=== PATIENT | male | born 1945 | race Caucasian/White ===

== ENCOUNTER → 2016-06-10 | Outpatient (CLI) | payer BC ==
[~2016-06-10] MED LIST: CRAN1TAB PO; CRS/10 PO; FLAXOIL2 PO; GLUCTAB7 PO; MAGN250T22 PO; MECL1TAB42 PO; MULT-506 PO; OMEG10007 PO; OXYC-57 PO; ROSU10TA35; SIMV10TA2 PO; TAMS0.4C38 PO
== END | disposition home or self-care (01) ==
LOC: C.LABSPEC 17:00
PROVIDERS: ATTEND Urology
DX: N20.0 Calculus of kidney (principal)

== ENCOUNTER → 2016-06-10 | Outpatient (CLI) | payer BC ==
--- NOTE | 2016-06-10 14:42 | DIAGNOSTIC IMAGING REPORT ---
KUB CLINICAL HISTORY: N20.0 [id number] COMPARISON STUDY: 04/22/2016 FINDINGS: There are right lower pole renal calculi measuring 14.511 mm respectively. There is a 7 mm mid pole left renal calculus. Pelvic basin calcifications are felt to reflect phleboliths and arterial calcifications.. There is no pathologic bowel dilatation. IMPRESSION: Bilateral nephrolithiasis. Electronically signed by: Rusty Mcdonald M.D. 06/10/2016 2:40 PM
== END | disposition home or self-care (01) ==
LOC: C.RAD 14:00
PROVIDERS: ATTEND Urology
DX: N20.0 Calculus of kidney (principal)

== ENCOUNTER → 2016-06-26 | Day surgery (SDC) | payer BC ==
[2016-06-19 10:19] VITALS: Ht 176.5 cm; Wt 77.3 kg
--- NOTE | 2016-06-25 15:17 | DIAGNOSTIC IMAGING REPORT ---
KUB CLINICAL HISTORY: Nephrolithiasis. FINDINGS: 2 AP abdominal radiograph are compared to study dated 06/10/2016 and correlated with abdominal CT dated 01/15/2016. There is a nonobstructed abdominal bowel gas pattern. There are several nonobstructing left renal calculi. The largest measures up to 7 mm. There are 2 large calculi or clusters of calculi in the right kidney. These measure up to 1.2 cm and 1.5 cm, and are overall similar to the 06/10/2016 examination. No ureteral calculus is seen. Numerous pelvic phleboliths are similar to previous. The skeletal structures appear osteopenic. There is mild lumbosacral spondylosis. IMPRESSION: Bilateral nephrolithiasis, similar in appearance to the 06/10/2016 examination. Electronically signed by: Ceferino Allen M.D. 06/25/2016 3:15 PM Dictated Date/Time: 06/25/2016 3:12 PM
[~2016-06-26] VITALS: Ht 176.5 cm; Wt 77.3 kg
[~2016-06-26] MED LIST changes: +ATROPINE SULFATE 0.1 MG/ML 5ML SYR IV PRN; +CIPROFLOXACIN / D5W 400 MG IV SCH; +CLINDAMYCIN 600 MG/54 ML D5W IV SCH; +DEXAMETHASONE SOD INJ 4 MG/ML VIAL ONE; +EpHEDrine SULFATE INJ 50 MG/ML AMP IV PRN; +FENTANYL CITRATE INJ 50 MCG/1 ML 2 ML VIAL IV PRN; +FENTANYL CITRATE INJ 50 MCG/1 ML 2 ML VIAL ONE; +LACTATED RINGER'S 1000ML 1,000 ML IV SCH; +LIDOCAINE HCL 2% 2 ML VIAL (20MG/ML) ONE; +MIDAZOLAM HCL 1 MG/ML 2ML VIAL ONE; +ONDANSETRON INJ 2 MG/ML 2 ML VIAL IV PRN; +ONDANSETRON INJ 2 MG/ML 2 ML VIAL ONE; +OXYCODONE/ACETAMINOPHEN 5-325 TAB PO PRN; +PROPOFOL IV EMULSION 10 MG/ML 20 ML VIAL IV ONE; +ROSU10TA24; -ROSU10TA35; -SIMV10TA2 PO
--- NOTE | 2016-06-26 08:32 | History & Physical Bridge Note ---
H&P Re-Evaluation Bridge Note: I have examined the patient, reviewed the History & Physical and in the interval since the performance of the History & Physical I have noted the following changes of clinical significance: No changes noted
--- NOTE | 2016-06-26 09:26 | [facility] Post Operative Brief Note ---
Immediate Operative Summary Operative Date Jun 26, 2016. Pre-Operative Diagnosis Left Kidney Stone Post-Operative Diagnosis Same Procedure(s) Performed Left Extracorporeal Shock Wave Lithotripsy Surgeon Dr Hameed Hand Tier Surgeon(s) None Estimated Blood Loss 0ml Findings left stones Specimens None
--- NOTE | 2016-06-26 09:31 | Discharge Instructions-SurgCtr ---
Discharge Instructions Visit Reason for Visit: Stones;Nephrolithiasis N20.0 Discharge Discharge Diagnosis / Problem: stone Discharge Goals Goal(s): Therapeutic intervention Activity Recommendations Activity Limitations: resume your previous activity (take it easy today) Anesthesia . Post Anesthesia Instructions: If you have had General Anesthesia or IV Sedation: * Do not drive today. * Resume driving when surgeon permits. * Do not make important decisions or sign legal documents today. * Call surgeon for: 1. Temperature elevations greater than 101 degrees F. 2. Uncontrollable pain. 3. Excessive bleeding. 4. Persistent nausea and vomiting. 5. Medication intolerance (nausea, vomiting or rash). * For nausea and vomiting use only clear liquids such as: tea, soda, bouillon until nausea subsides, then gradually increase diet as tolerated. * If you have any concerns or questions, call your surgeon's office. If physician is unavailable and it is an emergency, call 911 or go to the nearest emergency room. . Instructions / Follow-Up Instructions / Follow-Up MEDICATIONS: Resume previous medications unless instructed otherwise by your surgeon. Resume pre-ESWL medication except for aspirin, coumadin or other blood thinners. __ Toradol 10 mg every 6 hours for initial pain. __ Lortab 5 mg 1-2 every 4 hours for pain. _x_ Percocet 5 mg 1-2 every 4 hours for pain. __ Macrodantin 50 mg x 3 a day. __ Flomax 1 tab daily one half (1/2) hour after supper. SPECIAL CARE INSTRUCTIONS: 1. Get KUB (x-ray) _x_ day before or day of office visit and bring x-ray to office __ get x-ray 2 days before and tell office you are getting x-rays when you call for the appointment. 2. Strain ALL urine. 3. Please call if you have a fever, chills, severe pain, or constant dribbling of urine. 4. Office phone number . FOLLOW UP VISIT: Please call the office to schedule a follow-up appointment at . Diet Recommendations Home Diet: resume previous diet Procedures Procedures Performed: Left Extracorporeal Shock Wave Lithotripsy Pending Studies Studies pending at discharge: no Medical Emergencies . Who to Call and When: Medical Emergencies: If at any time you feel your situation is an emergency, please call 911 immediately. . Non-Emergent Contact Non-Emergency issues call your: Urologist . . "Provider Documentation" section prepared by Fabrice Stark. [facility] Monitoring Program Search Results: patient reviewed within database
--- NOTE | 2016-06-26 10:20 | Anesthesia Progress Nt - [facility] ---
Anesthesia Post Op Note Date & Time Jun 26, 2016 at 10:14 Vital Signs Pain Intensity: 0 Vital Signs Past 12 Hours Date Time Temp Pulse Resp B/P Pulse Ox O2 Delivery O2 Flow Rate FiO2 06/26/16 10:06 76 13 95 06/26/16 10:06 74 13 06/26/16 10:03 115/68 06/26/16 10:01 71 12 06/26/16 10:01 70 12 96 06/26/16 09:58 106/70 06/26/16 09:56 75 27 06/26/16 09:56 77 27 96 06/26/16 09:53 99/58 06/26/16 09:51 73 15 97 06/26/16 09:51 72 15 06/26/16 09:48 106/72 06/26/16 09:46 64 6 97 06/26/16 09:46 62 6 06/26/16 09:43 112/71 06/26/16 09:41 61 27 06/26/16 09:41 61 27 109/66 97 06/26/16 09:40 36.5 61 106/61 97 Room Air 06/26/16 07:48 36.5 85 18 128/81 95 Room Air Notes Mental Status: alert / awake / arousable, participated in evaluation Pt Amnestic to Procedure: Yes Nausea / Vomiting: adequately controlled Pain: adequately controlled Airway Patency, RR, SpO2: stable & adequate BP & HR: stable & adequate Hydration State: stable & adequate Anesthetic Complications: no major complications apparent
[2016-06-26 10:24] VITALS: TEMP 36.6
[2016-06-26 10:46] VITALS: BP 128/77; O2SAT 97
--- NOTE | 2016-06-30 13:35 | OPERATIVE REPORT ---
DATE OF OPERATION: 06/26/2016 PREOPERATIVE DIAGNOSIS: Left renal calculus. POSTOPERATIVE DIAGNOSIS: Same. PROCEDURE: Extracorporeal shockwave lithotripsy. FINDINGS: KUB showed stone left kidney. SURGEON: Dr. Stark. ANESTHESIA: General. DRAINS: None. COMPLICATIONS: None. SPECIMENS: None. INDICATIONS: The patient is a 71-year-old white male with a left renal stone being brought in for ESWL. DETAILS OF PROCEDURE: The patient was brought to the litho suite. He was correctly identified and the stone was visualized on his most recent x-rays. After the correct time out was performed the patient was positioned over the therapy head. An adequate level of anesthesia was administered. The extracorporeal shockwave lithotripsy treatment was then commenced. Please see the [place] Kidney Stone Management sheet for complete treatment summary. After completion of the procedure the patient was taken to the recovery room in stable condition. I attest to the content of the Intraoperative Record and any orders documented therein. Any exceptio ns are noted below.
== END | disposition home or self-care (01) ==
LOC: X.SURG 07:34
PROVIDERS: ATTEND Urology
DX: N20.0 Calculus of kidney (principal); N40.0 Benign prostatic hyperplasia without lower urinary tract symptoms; R31.0 Gross hematuria; R97.20 Elevated prostate specific antigen [PSA]; Z90.89 Acquired absence of other organs; Z83.3 Family history of diabetes mellitus

== ENCOUNTER → 2016-07-06 | Outpatient (CLI) | payer BC ==
[~2016-07-06] MED LIST changes: -ATROPINE SULFATE 0.1 MG/ML 5ML SYR IV PRN; -CIPROFLOXACIN / D5W 400 MG IV SCH; -CLINDAMYCIN 600 MG/54 ML D5W IV SCH; -DEXAMETHASONE SOD INJ 4 MG/ML VIAL ONE; -EpHEDrine SULFATE INJ 50 MG/ML AMP IV PRN; -FENTANYL CITRATE INJ 50 MCG/1 ML 2 ML VIAL IV PRN; -FENTANYL CITRATE INJ 50 MCG/1 ML 2 ML VIAL ONE; -LACTATED RINGER'S 1000ML 1,000 ML IV SCH; -LIDOCAINE HCL 2% 2 ML VIAL (20MG/ML) ONE; -MIDAZOLAM HCL 1 MG/ML 2ML VIAL ONE; -ONDANSETRON INJ 2 MG/ML 2 ML VIAL IV PRN; -ONDANSETRON INJ 2 MG/ML 2 ML VIAL ONE; -OXYCODONE/ACETAMINOPHEN 5-325 TAB PO PRN; -PROPOFOL IV EMULSION 10 MG/ML 20 ML VIAL IV ONE
--- NOTE | 2016-07-06 15:28 | DIAGNOSTIC IMAGING REPORT ---
KUB CLINICAL HISTORY: Nephrolithiasis. FINDINGS: 2 AP abdominal radiograph are compared to study dated 06/25/2016 and correlated with abdominal CT dated 01/15/2016. There is a nonobstructed abdominal bowel gas pattern. There are several nonobstructing left renal calculi. The largest stone in on the left previously measured 7 mm is no longer identified. Several stone fragments are now seen at this site. Additional tiny nonobstructing left calculi are unchanged. There is unchanged appearance of the 2 large right renal calculi as compared to 06/25/2016. These measure up to 1.2 cm and 1.5 cm. No ureteral calculus is seen. Numerous pelvic phleboliths are similar to previous. The skeletal structures appear osteopenic. There is mild lumbosacral spondylosis. IMPRESSION: 1. The largest nonobstructing left renal calculus is seen on 06/25/2016 has been fragmented as above. 2. Large right renal calculi are unchanged in appearance. Electronically signed by: Ceferino Allen M.D. 07/06/2016 3:27 PM Dictated Date/Time: 07/06/2016 3:24 PM
== END | disposition home or self-care (01) ==
LOC: C.RAD 14:52
PROVIDERS: ATTEND Urology
DX: N20.0 Calculus of kidney (principal)

== ENCOUNTER → 2016-07-24 | Day surgery (SDC) | payer BC ==
[2016-07-16 12:10] VITALS: Ht 176.5 cm; Wt 77.3 kg
--- NOTE | 2016-07-23 14:11 | DIAGNOSTIC IMAGING REPORT ---
KUB HISTORY: N20.0 Calculus of kidney BE DONE EITHER THE NIGHT BEFORE OR MO COMPARISON: KUB 07/06/2016. FINDINGS: The bowel gas pattern is unremarkable. There are no dilated loops of small bowel to suggest an obstruction. Bilateral nephrolithiasis is not significant changed. There are 2 adjacent irregular stones within the right kidney with the largest measuring 14 mm. These remain unchanged. Punctate left renal calculi are again noted including the fragmented stone within the interpolar region of the left kidney.. No ureteral calculi. Calcifications in the deep pelvis likely represent phleboliths. No pneumoperitoneum or pneumatosis. IMPRESSION: Stable bilateral nephrolithiasis. Electronically signed by: Blaine Daily M.D. 07/23/2016 2:10 PM Dictated Date/Time: 07/23/2016 2:08 PM
[~2016-07-24] VITALS: Ht 176.5 cm; Wt 77.3 kg
[~2016-07-24] MED LIST changes: +ATROPINE SULFATE 0.1 MG/ML 5ML SYR IV PRN; +CIPROFLOXACIN 400MG / D5W IV SCH; +CeleBREX 200 MG CAP PO SCH; +EpHEDrine SULFATE 50MG/5ML SYR ONE; +FENTANYL CITRATE INJ 50 MCG/1 ML 2 ML VIAL IV PRN; +FENTANYL CITRATE INJ 50 MCG/1 ML 2 ML VIAL ONE; +LABETALOL HCL IV 5 MG/ML 20ML IV PRN; +LACTATED RINGER'S 1000ML 1,000 ML IV SCH; +LIDOCAINE HCL 2% 2 ML VIAL (20MG/ML) ONE; +ONDANSETRON INJ 2 MG/ML 2 ML VIAL IV PRN; +ONDANSETRON INJ 2 MG/ML 2 ML VIAL ONE; +PREGABALIN 75 MG CAP PO SCH; +PROPOFOL IV EMULSION 10 MG/ML 20 ML VIAL IV ONE; -ROSU10TA24
--- NOTE | 2016-07-24 11:01 | [facility] Post Operative Brief Note ---
Immediate Operative Summary Operative Date Jul 24, 2016. Pre-Operative Diagnosis Right Renal Calculi Post-Operative Diagnosis Same Procedure(s) Performed Right Extracorporeal Shock Wave Lithotripsy - Renal Surgeon Dr. Kohler Telesales Agent Surgeon(s) None Estimated Blood Loss 0 mL Findings two large lower pole stones Specimens None
--- NOTE | 2016-07-24 11:03 | Discharge Instructions-SurgCtr ---
Discharge Instructions Visit Reason for Visit: Stones;Calculus Of Kidney N20.0 Discharge Goals Goal(s): Improve disease control Activity Recommendations Activity Limitations: as noted below (no driving on narcotics) Anesthesia . Post Anesthesia Instructions: If you have had General Anesthesia or IV Sedation: * Do not drive today. * Resume driving when surgeon permits. * Do not make important decisions or sign legal documents today. * Call surgeon for: 1. Temperature elevations greater than 101 degrees F. 2. Uncontrollable pain. 3. Excessive bleeding. 4. Persistent nausea and vomiting. 5. Medication intolerance (nausea, vomiting or rash). * For nausea and vomiting use only clear liquids such as: tea, soda, bouillon until nausea subsides, then gradually increase diet as tolerated. * If you have any concerns or questions, call your surgeon's office. If physician is unavailable and it is an emergency, call 911 or go to the nearest emergency room. . Diet Recommendations Home Diet: resume previous diet Procedures Procedures Performed: Right Extracorporeal Shock Wave Lithotripsy - Renal Medical Emergencies . Who to Call and When: Medical Emergencies: If at any time you feel your situation is an emergency, please call 911 immediately. . Non-Emergent Contact . . "Provider Documentation" section prepared by Luis Kohler.
[2016-07-24 11:45] VITALS: TEMP 36.5
[2016-07-24 12:03] VITALS: BP 130/82; PULSE 80; O2SAT 96
--- NOTE | 2016-07-24 12:07 | Anesthesia Progress Nt - [facility] ---
Anesthesia Post Op Note Date & Time Jul 24, 2016 at 12:07 Vital Signs Pain Intensity: 0 Vital Signs Past 12 Hours Date Time Temp Pulse Resp B/P Pulse Ox O2 Delivery O2 Flow Rate FiO2 07/24/16 12:03 80 16 130/82 96 Room Air 07/24/16 11:45 36.5 76 18 137/75 96 Room Air 07/24/16 11:29 77 9 95 07/24/16 11:29 78 9 07/24/16 11:28 126/79 07/24/16 11:27 82 12 96 07/24/16 11:27 84 12 07/24/16 11:25 36.7 83 19 130/77 96 Room Air 07/24/16 11:23 130/77 07/24/16 11:22 88 18 96 07/24/16 11:22 86 18 07/24/16 11:18 122/78 07/24/16 11:17 92 15 100 07/24/16 11:17 89 15 07/24/16 11:13 122/71 07/24/16 11:12 78 15 07/24/16 11:12 79 15 99 07/24/16 11:08 120/72 07/24/16 11:07 83 19 99 07/24/16 11:07 83 19 07/24/16 11:07 36.7 87 14 118/66 99 Mask 6 07/24/16 09:50 36.5 75 18 149/84 97 Room Air Notes Mental Status: alert / awake / arousable, participated in evaluation Pt Amnestic to Procedure: Yes Nausea / Vomiting: adequately controlled Pain: adequately controlled Airway Patency, RR, SpO2: stable & adequate BP & HR: stable & adequate Hydration State: stable & adequate Anesthetic Complications: no major complications apparent
--- NOTE | 2016-07-25 02:40 | OPERATIVE REPORT ---
DATE OF OPERATION: 07/24/2016 PREOPERATIVE DIAGNOSIS: Right renal stone. POSTOPERATIVE DIAGNOSIS: Same. PROCEDURE PERFORMED: Right ESWL. DESCRIPTION OF THE PROCEDURE: The patient was taken to the operating room where general anesthesia was administered after he had Venodyne stockings and antibiotics. He was placed in the supine position on the litho table. The stone was visualized and he received 2500 shocks, the majority at level 5. At the end of the procedure, the patient was transferred to recovery room in stable condition. I attest to the content of the Intraoperative Record and any orders documented therein. Any exceptio ns are noted below.
== END | disposition home or self-care (01) ==
LOC: X.SURG 09:24
PROVIDERS: ATTEND Urology
DX: N20.0 Calculus of kidney (principal); R31.0 Gross hematuria; N40.0 Benign prostatic hyperplasia without lower urinary tract symptoms; R97.20 Elevated prostate specific antigen [PSA]; J34.2 Deviated nasal septum; E78.00 Pure hypercholesterolemia, unspecified; M19.90 Unspecified osteoarthritis, unspecified site; K21.9 Gastro-esophageal reflux disease without esophagitis; Z98.890 Other specified postprocedural states; Z88.8 Allergy status to other drugs, medicaments and biological substances; Z83.3 Family history of diabetes mellitus; Z82.49 Family history of ischemic heart disease and other diseases of the circulatory system

== ENCOUNTER → 2016-08-05 | Outpatient (CLI) | payer BC ==
[~2016-08-05] MED LIST changes: -ATROPINE SULFATE 0.1 MG/ML 5ML SYR IV PRN; -CIPROFLOXACIN 400MG / D5W IV SCH; -CeleBREX 200 MG CAP PO SCH; -EpHEDrine SULFATE 50MG/5ML SYR ONE; -FENTANYL CITRATE INJ 50 MCG/1 ML 2 ML VIAL IV PRN; -FENTANYL CITRATE INJ 50 MCG/1 ML 2 ML VIAL ONE; -LABETALOL HCL IV 5 MG/ML 20ML IV PRN; -LACTATED RINGER'S 1000ML 1,000 ML IV SCH; -LIDOCAINE HCL 2% 2 ML VIAL (20MG/ML) ONE; -ONDANSETRON INJ 2 MG/ML 2 ML VIAL IV PRN; -ONDANSETRON INJ 2 MG/ML 2 ML VIAL ONE; -PREGABALIN 75 MG CAP PO SCH; -PROPOFOL IV EMULSION 10 MG/ML 20 ML VIAL IV ONE; -TAMS0.4C38 PO
--- NOTE | 2016-08-05 12:15 | DIAGNOSTIC IMAGING REPORT ---
KUB CLINICAL HISTORY: Nephrolithiasis. FINDINGS: 2 AP abdominal radiograph are compared to study dated 07/23/2016 and correlated with abdominal CT dated 01/15/2016. There is a nonobstructed abdominal bowel gas pattern. There are several residual nonobstructing right renal calculi. The largest measures 10 mm, and the stone burden has decreased from 07/23/2016. No calculi are seen projecting over the left kidney or along the course of the ureters. Numerous pelvic phleboliths are similar to previous. The skeletal structures appear osteopenic. There is mild lumbosacral spondylosis. IMPRESSION: 1. Significant decrease in stone burden in the right kidney as compared to 07/23/2016 as detailed above. 2. No left renal calculi are identified and there is no evidence of ureteral calculus. Electronically signed by: Ceferino Allen M.D. 08/05/2016 12:13 PM Dictated Date/Time: 08/05/2016 12:11 PM
== END | disposition home or self-care (01) ==
LOC: C.RAD 11:23
PROVIDERS: ATTEND Urology
DX: N20.0 Calculus of kidney (principal)

== ENCOUNTER → 2016-08-05 | Outpatient (CLI) | payer BC | END | disposition home or self-care (01) | LOC: C.LABSPEC 17:02 | PROVIDERS: ATTEND Urology | DX: N20.0 Calculus of kidney (principal) ==

== ENCOUNTER → 2016-11-05 | Outpatient (CLI) | payer BC ==
[~2016-11-05] MED LIST changes: +GADAVIST IV PRN
--- NOTE | 2016-11-05 17:46 | DIAGNOSTIC IMAGING REPORT ---
Brain and internal auditory canal MRI WITH AND WITHOUT CONTRAST HISTORY: Tinnitus. MENIERE Disease TECHNIQUE: Multiplanar multisequence MRI of the brain was performed both before and after the intravenous administration of contrast. COMPARISON STUDY: Brain MRI 02/03/2015. FINDINGS: There is no mass, hematoma, midline shift, or acute infarct. Moderate mucosal thickening within the right sphenoid sinus. The mastoid air cells are clear. The ventricles and sulci demonstrate mild age-related involutional changes. Scattered foci of T2 hyperintensity seen within the periventricular and subcortical white matter are nonspecific but suggestive of mild microvascular ischemic changes. The major vascular flow voids at the skull base are well-maintained. The 7th and 8th cranial nerves are normal in course and caliber. No masses or abnormal enhancement within the internal auditory canals. There is a 1.5 cm stable cystic lesion within the right parotid gland. This may contain enhancing septations. IMPRESSION: 1. No acute intracranial abnormality. 2. Normal bilateral internal auditory canals. 3. A 1.5 cm stable cystic lesion within the right parotid gland. Follow-up nonemergent into consultation is recommended. Electronically signed by: Blaine Daily M.D. 11/05/2016 5:44 PM Dictated Date/Time: 11/05/2016 5:35 PM
== END | disposition home or self-care (01) ==
LOC: C.MRI 16:18
PROVIDERS: ATTEND Physician Assistant
DX: H81.09 Meniere's disease, unspecified ear (principal); K11.6 Mucocele of salivary gland